=== PATIENT | male | born 1985 | race Caucasian/White ===

== ENCOUNTER 2017-05-26 16:30 | Emergency (ER) | payer BC ==
[2017-05-26] MEDS ORDERED: Tetracaine 0.5% 2 ML Bottle EYERT ONE (16:32)
[2017-05-26 17:22] VITALS: BP 128/83
--- NOTE | 2017-05-26 18:38 | EDM.PDOC ---
ED HPI GENERAL MEDICAL PROBLEM - General Chief Complaint: Eye Problems Stated Complaint: FB in right eye Time Seen by Provider: 05/26/17 18:21 Source of Information: Reports: Patient History Limitations: Reports: No Limitations - History of Present Illness INITIAL COMMENTS - FREE TEXT/NARRATIVE: Patient is a 32 year old male who presents to the ER with complaints of a foreign body in his right eye. He reports he was cutting wood in his garage and he felt like he got a piece of wood in his eye. He reports this happened about 11 am this morning. He tried flushing out his eye. He reports the eye is very irritated and sore. He reports his vision is blurry, but he is able to make out numbers when asked. Onset: Today Onset Date: 05/26/17 Onset Time: 11:00 Location: Reports: Other (right eye) Treatments REGISTERED NURSE [facility] ICU: Reports: Other (see below) Other Treatments REGISTERED NURSE [facility]IOV[facility]ULAR ICU: flushed it out with water Right Eye Pain Score (Numeric/FACES): 6 - Related Data Allergies Allergy/AdvReac Type Severity Reaction Status Date / Time Sulfa (Sulfonamide Allergy Intermediate Rash Verified 05/26/17 17:22 Antibiotics) Home Meds: Home Meds Fluticasone Propionate [Flonase] 2 spray NASBOTH DAILY 12/19/13 [History] Pantoprazole [ProTONIX] 40 mg PO DAILY 12/19/13 [History] Mometasone Furoate [Nasonex] 2 spray NASBOTH BEDTIME 04/10/16 [History] SUMAtriptan Succinate [Imitrex] 25 mg PO DAILY PRN 04/10/16 [History] traZODone 50 mg PO BEDTIME PRN 04/10/16 [History] Past Medical History HEENT History: Reports: Allergic Rhinitis, Sinusitis Gastrointestinal History: Reports: Chronic Diarrhea, GERD, Irritable Bowel Syndrome Musculoskeletal History: Reports: Arthritis, Other (See Below) Other Musculoskeletal History: bilateral knee pain, low back pain Neurological History: Reports: Migraines Psychiatric History: Reports: Anxiety, Other (See Below) Other Psychiatric History: insomnia - Past Surgical History HEENT Surgical History: Reports: Other (See Below) Other HEENT Surgeries/Procedures: sinus surgery about a month ago. Musculoskeletal Surgical History: Reports: Other (See Below) Social & Family History - Tobacco Use Smoking Status *Q: Never Smoker Years of Tobacco use: 8 Used Tobacco, but Quit: Yes Month Tobacco Last Used: 5 years ago Second Hand Smoke Exposure: No - Alcohol Use Days Per Week of Alcohol Use: 7 Number of Drinks Per Day: 2 Total Drinks Per Week: 14 - Recreational Drug Use Recreational Drug Use: No - Living Situation & Occupation Living situation: Reports: Alone, Other Occupation: Employed ED ROS GENERAL - Review of Systems Review Of Systems: ROS reveals no pertinent complaints other than HPI. ED EXAM GENERAL W FULL EYE - Physical Exam Exam: See Below Exam Limited By: No Limitations General Appearance: Alert, WD/WN, No Apparent Distress, Mild Distress Eye Exam: Right Eye: Conjunctival Injection, Corneal Abrasion, Vision Changes ( blurry), Left Eye: Normal Inspection, Bilateral Eye: EOMI, PERRL Eyelids: Bilateral: Normal Appearance Conjunctiva & Sclera: Right: Injected Cornea Exam: Right: Corneal Abrasion, Examined with Flourescein Extraocular Movements: Bilateral: Intact Pupils: Normal Accommodation Pupillary Size: Bilateral: 4 mm Pupillary Reaction: Bilateral: Brisk Posterior Chamber: Bilateral: Normal Funduscopic ED EYE w/ Add Procedure - Eye Procedure Alcaine Drops Administered: Yes Eye Irrigated w/ Saline (ccs): 250 Antibiotic Oinment/Drps Admin: Right Eye Course - Vital Signs Last Recorded V/S: Last Vital Signs Temp 98.6 F 05/26/17 16:30 Pulse 72 05/26/17 16:30 Resp 16 05/26/17 16:30 BP 128/83 05/26/17 16:30 Pulse Ox 98 05/26/17 16:30 - Orders/Labs/Meds Meds: Medications Discontinued Medications Generic Name Dose Route Start Last Admin Trade Name Jimenez PRN Reason Stop Dose Admin Tetracaine 1 ml 05/26/17 16:32 05/26/17 16:35 Pontocaine 0.5% Ophth Drops EYERT 05/26/17 16:33 1 drop ASDIRECTED ONE Administration Tobramycin/Dexamethasone 1 ml 05/26/17 18:45 05/26/17 18:47 Tobradex Ophth Susp EYERT 2 drop Q4H VARINDER Administration Departure - Departure Time of Disposition: 18:41 Disposition: Home, Self-Care 01 Condition: Fair Clinical Impression: Corneal abrasion - Discharge Information Instructions: Eye Foreign Body, [id number] Referrals: Gregg Howell PA-C [Primary Care Provider] - Forms: ED Department Discharge Additional Instructions: Tobramycin 2 gtt to affected eye Q 4 hours while awake. #1 bottle. take Home Follow up with [facility] sewer hand Sunday. Follow up with primary care provider as needed. Return to ER for worsening condition or any other emergent concerns. - Problem List & Annotations (1) Corneal abrasion, right SNOMED Code(s): 58406390 Code(s): S05.01XA - INJ CONJUNCTIVA AND CORNEAL ABRASION W/O FB, RIGHT EYE, INIT Status: Acute Priority: High Qualifiers: Encounter type: initial encounter Qualified Code(s): S05.01XA - Injury of conjunctiva and corneal abrasion without foreign body, right eye, initial encounter - Problem List Review Problem List Initiated/Reviewed/Updated: Yes - Assessment/Plan Plan: SEE RN NOTE FOR PFSH. Tobramycin 2 gtt to affected eye Q 4 hours while awake. #1 bottle. take Home Follow up with [facility] hand Sunday. Follow up with primary care provider as needed. Return to ER for worsening condition or any other emergent concerns.
[2017-05-26] MEDS ORDERED: Dexamethasone/Tobramycin 0.1-0.3% Ophth Susp 2.5 ML Bottle EYERT SCH (18:45)
== END 2017-05-26 18:50 | disposition home or self-care (01) ==
LOC: CC.ED 16:30
DX: S05.01XA Injury of conjunctiva and corneal abrasion without foreign body, right eye, initial encounter (principal); K21.9 Gastro-esophageal reflux disease without esophagitis; Z79.899 Other long term (current) drug therapy; F41.9 Anxiety disorder, unspecified; Z88.2 Allergy status to sulfonamides; W45.8XXA Other foreign body or object entering through skin, initial encounter
CPT/HCPCS: 99282; A9270